=== PATIENT | female | born 1960 | race Hispanic/Latino ===

== ENCOUNTER 2017-08-19 07:55 | Day surgery (SDC) | payer MEDICAID ==
[~2017-08-19] VITALS: Ht 154.9 cm; Wt 67.1 kg
[~2017-08-19 07:55] MED LIST: CYAN50008 PO; DOCU1POW MC; ERGO500014 PO; FENT50PAT TD; FOLI0.8T22 PO; GABA-531 PO; HYDR-4068 PO; HYDR2PLA2 PO; HYDR2TAB5 PO; IBUP-2353 PO; LORA1TAB3 PO; ONDA8TAB12 PO; OXYB5TAB10 PO; PANT40TA25 PO; POLY119P2 PO; PYRI50TA9 PO; SODIUM CHLORIDE 0.9% 1000ML 1,000 ML IV ONE
[2017-08-19 09:33] VITALS: BP_SYST 68
[2017-08-19] MEDS ORDERED: ETHYL ALCOHOL 5 ML VIAL IJ SCH (09:45)
[2017-08-19] MEDS ORDERED: BUPIVACAINE/PF 0.25% 30ML VIAL IJ SCH (09:45)
[2017-08-19] MEDS ORDERED: PROPOFOL 10 MG/ML 20ML VIAL IV ONE (11:22)
[2017-08-19] MEDS ORDERED: MEPERIDINE-PF 25 MG/ML SYG ONE (12:06)
[2017-08-19] MEDS ORDERED: MEPERIDINE-PF 25 MG/ML SYG IV PRN (12:30)
[2017-08-19] MEDS ORDERED: RACEPINEPHRINE HCL 2.25% 0.5 ML NEB SOLN NEB PRN (12:30)
[2017-08-19] MEDS ORDERED: IPRATROPIUM/ALBUTEROL SULFATE 3 ML SOLUTION IH PRN (12:30)
[2017-08-19 12:45] VITALS: BP 146/80
[2017-08-19] MEDS ORDERED: MEPERIDINE HCL/PF 25 MG/ML 1ML VIAL IV PRN (12:45)
[2017-08-19] MEDS ORDERED: MIDAZOLAM HCL 1 MG/ML 2ML VIAL ONE (13:49)
[2017-08-19] MEDS ORDERED: ONDANSETRON HCL MDV 20ML 2 MG/ML VIAL ONE (13:54)
== END 2017-08-19 15:10 ==
LOC: DAH 07:55
PROVIDERS: ATTEND Internal Medicine
DX: K86.89 Other specified diseases of pancreas (principal); I10 Essential (primary) hypertension; M85.88 Other specified disorders of bone density and structure, other site; K59.09 Other constipation; K64.8 Other hemorrhoids; Z86.010 Personal history of colon polyps; Z85.07 Personal history of malignant neoplasm of pancreas; Z90.710 Acquired absence of both cervix and uterus; Z90.49 Acquired absence of other specified parts of digestive tract; Z98.890 Other specified postprocedural states; Z79.899 Other long term (current) drug therapy
CPT/HCPCS: 43253; A4215; A4606; J2175; J2250; J2704; J3490; J7030; 43232